=== PATIENT | female | born 1975 | race Caucasian/White ===

== ENCOUNTER 2017-05-02 03:33 | Emergency (ER) | payer SELFPAY ==
[2017-05-02] MEDS ORDERED: ALBUTEROL SO4 2.5/IPRATROPIUM 0.5 INH SOL 3 ML VIAL.NEB. NEB ONE (03:36)
[2017-05-02] MEDS ORDERED: predniSONE 20 MG TABLET (UD) PO ONE (03:36)
[2017-05-02] MEDS ORDERED: ACETAMINOPHEN WITH CODEINE 300MG/30MG TABLET PO ONE (03:37)
--- NOTE | 2017-05-02 03:41 | PDOC ---
History of Present Illness - General Chief Complaint: Respiratory Stated Complaint: COUGH Time Seen by Provider: 05/02/17 03:36 Past History - Travel Traveled outside of the country in the last 30 days: No Close contact w/someone who was outside of country & ill: No - Past Medical History Allergies/Adverse Reactions: Allergies Allergy/AdvReac Type Severity Reaction Status Date / Time No Known Allergies Allergy Verified 05/02/12 10:18 Home Medications: Ambulatory Orders Azithromycin [Zithromax -] 250 mg PO DAILY #4 tab 05/02/17 Montelukast Sodium [Singulair] 10 mg PO DAILY #30 tablet 05/02/17 Anemia: No Asthma: No Cancer: No Cardiac Disorders: No - Surgical History Appendectomy: Yes Cholecystectomy: Yes - Suicide/Smoking/Psychosocial Hx Smoking Status: No Smoking History: Never smoked Number of Cigarettes Smoked Daily: 0 Hx Alcohol Use: No Substance Use Type: None Review of Systems - Review of Systems Able to Perform ROS?: Yes Is the patient limited Kuwaiti proficient: No Constitutional: Yes: Chills. No: Symptoms Reported, See HPI, Diaphoresis, Fever , Loss of Appetite, Malaise, Night Sweats, Weakness, Weight Stable, Unintentional Wgt. Loss, Unexplained wgt Loss, Other HEENTM: No: Symptoms Reported, See HPI, Eye Pain, Blurred Vision, Tearing, Recent change in vision, Double Vision, Cataracts, Ear Pain, Ocular Prothesis, Ear Discharge, Nose Pain, Nose Congestion, Tinnitus, Nose Bleeding, Hearing Loss , Throat Pain, Throat Swelling, Mouth Pain, Dental Problems, Difficulty Swallowing, Mouth Swelling, Other Respiratory: Yes: Cough, Shortness of Breath, Wheezing. No: Symptoms reported, See HPI, Orthopnea, SOB with Exertion, SOB at Rest, Stridor, Productive cough, Hemoptysis, Other Cardiac (ROS): No: Symptoms Reported, See HPI, Chest Pain, Edema, Irregular Heart Rate, Lightheadedness, Palpitations, Syncope, Chest Tightness, Other ABD/GI: No: Symptoms Reported, See HPI, Abdominal Distended, Abd. Pain w/ defecation, Blood Streaked Bowels, Constipated, Diarrhea, Difficulty Swallowing , Nausea, Poor Appetite, Poor Fluid Intake, Rectal Bleeding, Vomiting, Indigestion, Abdominal cramping, Tarry Stools, Other Musculoskeletal: No: Symptoms Reported, See HPI, Back Pain, Gout, Joint Pain, Joint Swelling, Muscle Pain, Muscle Weakness, Neck Pain, Joint Stiffness, Other Integumentary: No: Symptoms Reported, See HPI, Bruising, Change in Color, Change in Hair/Nails, Dryness, Erythema, Flushing, Lesions, Lumps, Pallor, Pruritus, Rash, Sweating, Other Neurological: No: Symptoms reported, See HPI, Headache, Numbness, Paresthesia, Pre-Existing Deficit, Seizure, Tingling, Tremors, Weakness, Unsteady Gait, Ataxia, Dizziness, Other *Physical Exam - Physical Exam General Appearance: Yes: Nourished, Appropriately Dressed HEENT: positive: EOMI, JOCLEYNN, Normal ENT Inspection, Normal Voice, TMs Normal, Pharynx Normal Neck: positive: Trachea midline, Supple Respiratory/Chest: positive: Chest Tender, Lungs Clear, Respiratory Distress, Decreased Breath Sounds, Wheezing. 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 She is on no meds and she has no PMHX. SHe didn't gfet a flu shot this year. She has no ill contacts. She has no other complaints. She will be treated for reactive airways disease. She is afebile. She will be reevalauted. Likely viral illness with reactive component of her airways. 05/02/17 04:36 Pt states that she has become allergic to her dog lately. She and her 12 yo son take care of the dog. Now the son has to bathe the dog. she gets worsening asthma when she gets too close to the dog. *DC/Admit/Observation/Transfer Diagnosis at time of Disposition: Cough, Atypical pneumonia, Allergic bronchitis with acute exacerbation - Discharge Dispostion Disposition: HOME Condition at time of disposition: Stable Admit: No - Prescriptions Prescriptions: Azithromycin [Zithromax -] 250 mg PO DAILY #4 tab Montelukast Sodium [Singulair] 10 mg PO DAILY #30 tablet - Referrals - Patient Instructions Printed Discharge Instructions: Cough, DI for Atypical Pneumonia - Post Discharge Activity Forms/Work/School Notes: Back to Work
[2017-05-02 03:55] VITALS: BP 111/75; PULSE 124; TEMP 98.4; BMI 25.9
[2017-05-02] MEDS ORDERED: AZITHROMYCIN 250 MG TABLET ONE (04:34)
[2017-05-02] MEDS ORDERED: AZITHROMYCIN 250 MG TABLET PO ONE (04:39)
[2017-05-02] MEDS ORDERED: ONDANSETRON 4 MG TABLET PO ONE (04:54)
[2017-05-02] MEDS ORDERED: ONDANSETRON *ODT* 4 MG TABLET ONE (04:56)
== END 2017-05-02 05:21 | disposition home or self-care (01) ==
LOC: FER 03:33
PROC: 3E0F7GC Introduction of Other Therapeutic Substance into Respiratory Tract, Via Natural or Artificial Opening (ICD-10-PCS; principal; 2017-05-02)
DX: J18.8 Other pneumonia, unspecified organism (principal); J45.901 Unspecified asthma with (acute) exacerbation
CPT/HCPCS: 99281-25

== ENCOUNTER 2019-06-16 10:11 | Emergency (ER) | payer SELFPAY ==
--- NOTE | 2019-06-16 10:16 | PDOC ---
History of Present Illness - General Chief Complaint: Headache Stated Complaint: HEADACHE Time Seen by Provider: 06/16/19 10:16 History Source: Patient Exam Limitations: No Limitations - History of Present Illness Initial Comments: 06/16/19 10:44 Pt presents to the ED complaining of a gradual onset headache that began at 7: 30 am. Denies fever or photophobia, but does complain of nausea and vertigo. Pain is pressure like and severe, and is localized in the occiptal region, and radiates to the back of her neck. It has been constant and worsening since 7: 30 am. Patient denies a prior history of similar SEGURA. Stated that she did have an episode of vertigo several years ago, but that this episode was not accompanied by headache. Past History - Past Medical History Allergies/Adverse Reactions: Allergies Allergy/AdvReac Type Severity Reaction Status Date / Time No Known Allergies Allergy Verified 06/16/19 10:14 Anemia: No Asthma: No Cancer: No Cardiac Disorders: No COPD: No - Surgical History Appendectomy: Yes Cholecystectomy: Yes - Psycho Social/Smoking Cessation Hx Smoking Status: No Smoking History: Never smoked Have you smoked in the past 12 months: No Number of Cigarettes Smoked Daily: 0 Hx Alcohol Use: No Drug/Substance Use Hx: No Substance Use Type: None Review of Systems - Review of Systems Able to Perform ROS?: Yes Is the patient limited Welsh proficient: No Constitutional: No: Symptoms Reported, See HPI, Chills, Diaphoresis, Fever, Loss of Appetite, Malaise, Night Sweats, Weakness, Weight Stable, Unintentional Wgt. Loss, Unexplained wgt Loss, Other HEENTM: Yes: Ear Pain Respiratory: No: Symptoms reported, See HPI, Cough, Orthopnea, Shortness of Breath, SOB with Exertion, SOB at Rest, Stridor, Wheezing, Productive cough, Hemoptysis, Other Cardiac (ROS): No: Symptoms Reported, See HPI, Chest Pain, Edema, Irregular Heart Rate, Lightheadedness, Palpitations, Syncope, Chest Tightness, Other ABD/GI: No: Symptoms Reported, See HPI, Abdominal Distended, Abd. Pain w/ defecation, Blood Streaked Bowels, Constipated, Diarrhea, Difficulty Swallowing , Nausea, Poor Appetite, Poor Fluid Intake, Rectal Bleeding, Vomiting, Indigestion, Abdominal cramping, Tarry Stools, Other : No: Symptoms Reported, See HPI, Burning, Dysuria, Discharge, Frequency, Flank Pain, Hematuria, Incontinence, Pain, Urgency, Testicular Mass, Testicular Swelling, Lesions, Testicular Pain, Other Musculoskeletal: Yes: Neck Pain Integumentary: No: Symptoms Reported, See HPI, Bruising, Change in Color, Change in Hair/Nails, Dryness, Erythema, Flushing, Lesions, Lumps, Pallor, Pruritus, Rash, Sweating, Other Neurological: Yes: Headache, Dizziness *Physical Exam - Physical Exam 06/16/19 10:51 Gen: alert, uncomfortable HEENT: normocephalic, atraumatic, TMs clear b/l Neck: supple CV: rrr no m/r/g Pulm: CTA b/l Abdomen: soft, non tender, non distended without guarding or rebound NEuro: AAOx3, CN grossly intact, 5/5 strength b/l UE and LE, speech fluent and clear, ambulatory with normal gait. ED Treatment Course - LABORATORY CBC & Chemistry Diagram: 06/16/19 10:30 06/16/19 10:30 Medical Decision Making - Medical Decision Making 06/16/19 10:53 Pt presents to the ED complaining of headache. Pain is more consistent with migraine, but given her lack of SEGURA history and the severity of her pain, SAH is also on the differential. Will check CT head to rule out SAH--given that she is within 6 hours of the onset of her symptoms, the sensitivity will be high. Will give pain control and reassess. Discharge - Discharge Information Problems reviewed: Yes Clinical Impression/Diagnosis: Headache Qualifiers: Headache type: unspecified Headache chronicity pattern: acute headache Intractability: not intractable Qualified Code(s): R51 - Headache Condition: Good Disposition: HOME - Admission No - Follow up/Referral Referrals: Grey Helm MD [Primary Care Provider] - - Patient Discharge Instructions Patient Printed Discharge Instructions: DI for Headache Additional Instructions: you came to the ED for headache. We did a cat scan in the ED to make sure that there was no bleeding in the brain, and the test was negative. yOu should return to the Ed for severe headache or other worsening symptoms. You can take over the counter tylenol or motrin if your headache comes back. - Post Discharge Activity
[2019-06-16 10:20] VITALS: BP 133/80; PULSE 92; TEMP 97.5; BMI 26.2
[2019-06-16] MEDS ORDERED: ACETAMINOPHEN 1000 MG/100 ML VIAL (NON FORMULARY) IVPB ONE (10:23)
[2019-06-16] MEDS ORDERED: METOCLOPRAMIDE HCL INJECTION 10 MG/2 ML VIAL IVPUSH ONE (10:23)
[2019-06-16] MEDS ORDERED: ACETAMINOPHEN INJECTION 100 ML IVPB ONE (10:26)
[2019-06-16] MEDS ORDERED: METOCLOPRAMIDE HCL INJECTION 10 MG/2 ML VIAL ONE (10:26)
[2019-06-16 10:55] LABS: BASO % 0.9 % (0-2.0); EOS % 4.4 % (0-4.5); HEMOGLOBIN 13.7 GM/dl (10.7-15.3); LYMPH % 27.2 % (8-40); MCH 29.6 pg (25.7-33.7); MCHC 33.4 g/dl (32.0-36.0); MEAN CELL VOLUME 88.6 fl (80-96); MEAN PLT VOLUME 8.6 fl (7.5-11.1); MONO % 7.2 % (3.8-10.2); NEUT % 60.3 % (42.8-82.8); PLATELET COUNT 342 K/MM3 (134-434); RBC 4.63 M/mm3 (3.60-5.2); RDW 12.2 % (11.6-15.6); WHITE BLOOD COUNT 6.9 K/mm3 (4.0-10.8)
[2019-06-16 11:04] LABS: BILIRUBIN,TOTAL 0.5 mg/dl (0.2-1); CALCIUM 8.5 mg/dl (8.5-10); CREATININE 0.4 mg/dl (0.55-1.3); POTASSIUM 4.1 mmol/L (3.5-5.1); TOT PROT 7.6 g/dl (6.4-8.2)
== END 2019-06-16 12:06 | disposition home or self-care (01) ==
LOC: SUPCPDRO 10:11 → FER 10:11
PROC: 3E033NZ Introduction of Analgesics, Hypnotics, Sedatives into Peripheral Vein, Percutaneous Approach (ICD-10-PCS; principal; 2019-06-16)
PROC: 3E033GC Introduction of Other Therapeutic Substance into Peripheral Vein, Percutaneous Approach (ICD-10-PCS; 2019-06-16)
DX: R51 Headache (principal)
CPT/HCPCS: 36415; 70450-TC; 80053; 81025; 85025; 99283-25; J0131

== ENCOUNTER 2020-11-21 19:25 | Emergency (ER) | payer OTHER ==
[2020-11-21 19:36] VITALS: BP 112/80; PULSE 78; TEMP 98.1; BMI 30.2
[2020-11-21 20:06] LABS: HCG,QUALITATIVE URINE Negative
== END 2020-11-21 20:38 | disposition home or self-care (01) ==
LOC: FER 19:25
DX: M54.31 Sciatica, right side (principal); M54.32 Sciatica, left side
CPT/HCPCS: 81003; 82962; 84703; 99283-25

== ENCOUNTER 2021-10-04 23:01 | Emergency (ER) | payer OTHER ==
[2021-10-04 23:08] VITALS: BP 105/60; PULSE 76; TEMP 97.7; BMI 26.2
== END 2021-10-04 23:39 | disposition home or self-care (01) ==
LOC: FER 23:01
DX: S80.862A Insect bite (nonvenomous), left lower leg, initial encounter (principal); W57.XXXA Bitten or stung by nonvenomous insect and other nonvenomous arthropods, initial encounter
CPT/HCPCS: 99281-25

== ENCOUNTER 2023-01-25 03:49 | Emergency (ER) | payer OTHER ==
[2023-01-25 03:56] VITALS: BP 110/75; PULSE 79; RESP 18; TEMP 98; BMI 27.0
[2023-01-25] MEDS ORDERED: AZITHROMYCIN 500 MG TABLET PO ONE (04:10)
[2023-01-25] MEDS ORDERED: AZITHROMYCIN 500 MG TABLET ONE (04:10)
== END 2023-01-25 04:20 | disposition home or self-care (01) ==
LOC: FER 03:49
DX: R05.9 Cough, unspecified (principal); R09.82 Postnasal drip; J20.8 Acute bronchitis due to other specified organisms; Z20.822 Contact with and (suspected) exposure to COVID-19
CPT/HCPCS: 0241U-QW; 99283-25